=== PATIENT | male | born 1960 ===

== ENCOUNTER 2017-08-12 06:07 | Observation (INO) | payer BC ==
[2017-08-12] MEDS ORDERED: Sodium Chloride 0.9% 1,000 ML IV STA (07:09)
--- NOTE | 2017-08-12 07:09 | ED PDOC ---
Arrival/HPI - General Chief Complaint: GI Problem Time Seen by Provider: 08/12/17 06:44 Historian: Patient - History of Present Illness Narrative History of Present Illness (Text): 08/12/17 07:09 57 year old male, whose past medical history includes cardiac stents, presents to the Emergency department complaining of bloody stool since Tuesday. Patient informs visiting his GI doctor, Dr. Candelaria, for abdominal cramping prior to onset of symptoms. Patient informs worsening symptoms with darker stool. Patient states having a colonoscopy done 8 years ago, on which some diverticulitis was found. Patient denies any vomiting or abdominal discomfort. Patient denies any fever, chills, nausea, diarrhea, chest pain, shortness of breath or any other complaints. PMD: Dr. Gibbons. Time/Duration: < week Symptom Course: Worsening Activities at Onset: Light Context: Home Past Medical History - Provider Review Nursing Documentation Reviewed: Yes - Cardiac Other/Comment: Stents - Psychiatric Hx Substance Use: No Family/Social History - Physician Review Nursing Documentation Reviewed: Yes Family/Social History: No Known Family HX Smoking Status: no Hx Alcohol Use: No Hx Substance Use: No Allergies/Home Meds Allergies/Adverse Reactions: Allergies No Known Allergies Allergy (Verified 08/12/17 06:23) Home Medications: Home Meds Medication Instructions Recorded Confirmed Aspirin [Lo-Dose Aspirin EC] 81 mg PO DAILY 08/12/17 08/12/17 Atorvastatin [Lipitor] 80 mg PO DAILY 08/12/17 08/12/17 Bupropion HCl [Bupropion HCl Xl] 300 mg PO DAILY 08/12/17 08/12/17 Ezetimibe [Zetia] 10 mg PO DAILY 08/12/17 08/12/17 Levothyroxine [Synthroid] 25 mcg PO DAILY 08/12/17 08/12/17 Metoprolol Tartrate [Lopressor] 25 mg PO DAILY 08/12/17 08/12/17 No Known Home Med 08/12/17 08/12/17 Prasugrel [Effient] 10 mg PO DAILY 08/12/17 08/12/17 Ranolazine [Ranexa] 500 mg PO BID 08/12/17 08/12/17 Valsartan [Diovan] 320 mg PO DAILY 08/12/17 08/12/17 Review of Systems - Physician Review All systems were reviewed & negative as marked: Yes - Review of Systems Constitutional: Normal. absent: Fevers Eyes: Normal ENT: Normal Respiratory: Normal. absent: SOB Cardiovascular: Normal. absent: Chest Pain Gastrointestinal: Hematochezia. absent: Abdominal Pain, Diarrhea, Nausea, Vomiting Genitourinary Male: Normal Musculoskeletal: Normal Skin: Normal Neurological: Normal Endocrine: Normal Hemo/Lymphatic: Normal Psychiatric: Normal Physical Exam Vital Signs Reviewed: Yes Vital Signs Temp Pulse Resp BP Pulse Ox 08/12/17 09:00 74 18 124/76 98 08/12/17 06:20 98.2 F 84 18 122/80 89 L Temperature: Afebrile Blood Pressure: Normal Pulse: Regular Respiratory Rate: Normal Appearance: Positive for: Well-Appearing, Non-Toxic, Comfortable Pain Distress: None Mental Status: Positive for: Alert and Oriented X 3 - Systems Exam Head: Present: Atraumatic, Normocephalic Pupils: Present: PERRL Extroacular Muscles: Present: EOMI Conjunctiva: Present: Normal Mouth: Present: Moist Mucous Membranes Neck: Present: Normal Range of Motion Respiratory/Chest: Present: Clear to Auscultation, Good Air Exchange. No: Respiratory Distress, Accessory Muscle Use Cardiovascular: Present: Regular Rate and Rhythm, Normal S1, S2. No: Murmurs Abdomen: Present: Normal Bowel Sounds. No: Tenderness, Distention, Peritoneal Signs Rectal: Present: Gross Blood Back: Present: Normal Inspection Upper Extremity: Present: Normal Inspection. No: Cyanosis, Edema Lower Extremity: Present: Normal Inspection. No: Edema Neurological: Present: GCS=15, CN II-XII Intact, Speech Normal Skin: Present: Warm, Dry, Normal Color. No: Rashes Psychiatric: Present: Alert, Oriented x 3, Normal Insight, Normal Concentration Medical Decision Making ED Course and Treatment: 08/12/17 07:16 Impression: 57 year old male presents to the Emergency department for bloody stool. Plan: -- Blood type/screen -- EKG -- Labs -- IV Fluids -- Reassess and disposition Progress Notes: 08/12/17 08:[address] Candelaria, who specifically wants [facility] admission for the patient upon stable conditions. Dr. Gibbons will be notified. 08/12/17 07:16 EKG: Ordered, reviewed, and independently interpreted the EKG. Rate : 77 BPM Rhythm : NSR Interpretation : No ST-segment elevations or depressions, no T-wave inversions, normal intervals. - Lab Interpretations Lab Results: 08/12/17 07:00 08/12/17 06:53 Lab Results 08/12/17 07:30: Blood Type Confirm A POSITIVE 08/12/17 07:00: WBC 4.3 L, RBC 3.55, Hgb 12.2 L, Hct 37.8 L, MCV 106.5 H, MCH 34.4, MCHC 32.3, RDW 12.8, Plt Count 128, MPV 10.4, Gran % 59.4, Lymph % (Auto) 28.0, [place] % (Auto) 11.7 H, Eos % (Auto) 0.9 L, Baso % (Auto) 0.0, Gran # 2.54, Lymph # (Auto) 1.2, [place] # (Auto) 0.5, Eos # (Auto) 0.0, Baso # (Auto) 0.00 08/12/17 06:53: Blood Type A POSITIVE, Antibody Screen Negative, BBK History Checked No verified bt 08/12/17 06:53: Sodium 139, Potassium 3.9, Chloride 105, Carbon Dioxide 26, Anion Gap 12, BUN 13, Creatinine 1.0, Est GFR ( Amer) > 60, Est GFR (Non- Af Amer) > 60, Random Glucose 122 H, Calcium 9.4, Total Bilirubin 1.1, AST 54, ALT 71 H, Alkaline Phosphatase 71, Total Protein 6.6, Albumin 3.7, Globulin 2.9 , Albumin/Globulin Ratio 1.2, Amylase 45, Lipase 72 08/12/17 06:53: PT 12.0, INR 1.04, APTT 26.6 - Medication Orders Current Medication Orders: Atorvastatin Calcium (Lipitor) 80 mg PO DAILY [facility] Bupropion HCl (Wellbutrin Xl) 300 mg PO DAILY [facility] Lactated Ringer's (Lactated Ringer's) 1,000 mls @ 75 mls/hr IV .[id number] [facility] Stop: 08/12/17 21:01 Levothyroxine Sodium (Synthroid) 25 mcg PO DAILY [facility] Metoprolol Tartrate (Lopressor) 25 mg PO DAILY [facility] Non-Formulary Medication (Ranolazine [Ranexa]) 500 mg PO BID [facility] Pantoprazole Sodium (Protonix Inj) 40 mg IVP DAILY [facility] Valsartan (Diovan) 320 mg PO DAILY [facility] Discontinued Medications Bisacodyl (Dulcolax) 10 mg PO ONCE ONE Stop: 08/12/17 08:49 Last Admin: 08/12/17 09:41 Dose: 10 mg Sodium Chloride (Sodium Chloride 0.9%) 1,000 mls @ 999 mls/hr IV .[id number] STA Stop: 08/12/17 08:09 Last Admin: 08/12/17 07:11 Dose: 999 mls/hr eMAR Start Stop Document 08/12/17 07:11 RAKESH (Rec: 08/12/17 07:11 RAKESH [id number]) Intravenous Solution Start Date 08/12/17 Start Time 07:11 End Date 08/12/17 End time 08:11 Total Infusion Time 60 Magnesium Citrate (Citrate Of Mag) 300 ml PO ONCE ONE Stop: 08/12/17 08:48 Last Admin: 08/12/17 09:33 Dose: 300 ml - Scribe Statement The provider has reviewed the documentation as recorded by the Scribe Jalyn Mheta. All medical record entries made by the Limaibmandy were at my direction and personally dictated by me. I have reviewed the chart and agree that the record accurately reflects my personal performance of the history, physical exam, medical decision making, and the department course for this patient. I have also personally directed, reviewed, and agree with the discharge instructions and disposition. Disposition/Present on Arrival - Present on Arrival Any Indicators Present on Arrival: No History of DVT/PE: No History of Uncontrolled Diabetes: No Urinary Catheter: No History of Decub. Ulcer: No History Surgical Site Infection Following: None - Disposition Have Diagnosis and Disposition been Completed?: Yes Diagnosis: GI bleed Disposition: HOSPITALIZED Disposition Time: 09:00 Condition: STABLE
[2017-08-12 07:21] LABS: ALB/GLOB RATIO 1.2 (1.1-1.8); ALBUMIN 3.7 g/dL (3.0-4.8); ALT/SGPT 71 U/L (7-56); AMYLASE 45 U/L (35-125); AST/SGOT 54 U/L (17-59); BLOOD UREA NITROGEN 13 mg/dL (7-21); CALCIUM 9.4 mg/dL (8.4-10.5); GFR AFRICAN-AMERICAN > 60; GFR NON-AFRICAN AMERICAN > 60; LIPASE 72 U/L (23-300)
[2017-08-12 07:41] LABS: INR 1.04 (0.93-1.08); PARTIAL THROMBOPLASTIN TIME 26.6 Seconds (25.1-36.5)
[2017-08-12 07:45] LABS: EOS % 0.9 % (1.5-5.0); GRAN # 2.54 (1.4-6.5); GRAN % 59.4 % (50.0-68.0); HEMOGLOBIN 12.2 g/dL (14.0-18.0); LYMPH # 1.2 (1.2-3.4); MEAN CELL VOLUME 106.5 fl (80.0-105.0); MEAN CORPUSCULAR HEMOGLOBIN 34.4 pg (25.0-35.0); MEAN CORPUSCULAR HGB CONC 32.3 g/dl (31.0-37.0); MEAN PLATELET VOLUME 10.4 fl (7.0-11.0); MONO # 0.5 (0.1-0.6); MONO % 11.7 % (1.0-6.0); RBC 3.55 10^6/uL (3.5-6.1); RED CELL DISTRIBUTION WIDTH 12.8 % (11.5-14.5); WHITE BLOOD COUNT 4.3 10^3/ul (4.5-11.0)
[2017-08-12] MEDS ORDERED: Magnesium Citrate Oral SOL (300 ml) PO ONE (08:47)
[2017-08-12] MEDS ORDERED: Bisacodyl 5mg EC Tab PO ONE (08:48)
--- NOTE | 2017-08-12 11:12 | CP.PCM.CON ---
<Trista Coulter - Last Filed: 08/12/17 11:32> History of Present Illness - History of Present Illness History of Present Illness: Seen and examined in the emergency room, chart reviewed. Request for GI consult is for rectal bleeding. HPI: This 57-year-old male was seen in outpatient office yesterday for complaints of bright red blood in the stool for 2 days. complains of abdominal cramping and frequent bowel movements. He endorsed intermittent rectal bleeding for the past month and now had 2 days of bloody stool. He has history of homosexuality last sexual encounter via anus was 1 month ago with partner. He had rectal exam done by Dr. Candelaria as per Dr. Candelaria positive for martha blood and palpated rectal ulceration/mass. Patient continue to have bleeding. He has PMH of CAD, cardiac stent, HTN, GERD on Effient and aspirin. As per Dr. Candelaria, he spoke to cardiologsit and Effient was stopped, last cardiac cath was 3 years ago. No SOB, CP, N/V or fever or chills. PMH:Coronary artery disease,Hypercholesterolemia,Hypertension,3 cardiac stents, Gastroesophageal reflux, diverticulosis,Type 2 diabetes mellitus,Hypothyroidism. PSH: Last Colonoscopy was done on 2009. Family HX: denies fx h/o GI cancer MEDS: MAR reviewed, significant for Effient Social History: Non smoker.Patient drinks alcoholic beverages. 1 glass of wine a day, denies recreational drug use Allergy: shrimp ROS:systems reviewed w/ positive findings, see HPI Past Patient History - Past Social History Smoking Status: no - CARDIAC Other/Comment: Stents - PSYCHIATRIC Hx Substance Use: No Meds Allergies/Adverse Reactions: Allergies Allergy/AdvReac Type Severity Reaction Status Date / Time No Known Allergies Allergy Verified 08/12/17 06:23 Physical Exam - Constitutional Appears: No Acute Distress - Head Exam Head Exam: NORMOCEPHALIC - Eye Exam Eye Exam: Normal appearance. absent: Scleral icterus - ENT Exam ENT Exam: Mucous Membranes Moist - Neck Exam Neck exam: Positive for: Normal Inspection - Respiratory Exam Respiratory Exam: NORMAL BREATHING PATTERN. absent: Respiratory Distress - Cardiovascular Exam Cardiovascular Exam: +S1, +S2 - GI/Abdominal Exam GI & Abdominal Exam: Normal Bowel Sounds, Soft. absent: Guarding, Organomegaly , Rebound, Tenderness - Rectal Exam Additional comments: done in ER, (+) blood and done in out pt office. see HPI - Extremities Exam Extremities exam: Positive for: pedal pulses present. Negative for: calf tenderness, pedal edema - Neurological Exam Neurological exam: Alert, CN II-XII Intact, Oriented x3 - Skin Skin Exam: Dry, Warm Results - Vital Signs Recent Vital Signs: Last Vital Signs Temp 98.2 F 08/12/17 06:20 Pulse 84 08/12/17 06:20 Resp 18 08/12/17 06:20 BP 122/80 08/12/17 06:20 Pulse Ox 89 L 08/12/17 06:20 - Labs Result Diagrams: 08/12/17 07:00 08/12/17 06:53 Assessment & Plan - Assessment and Plan (Free Text) Assessment: ASSESSMENT: GI bleed, rectal bleeding, differential to consider,rectal mass, angiodysplasia H/O Diverticulosis CAD Cardiac stents DM PLAN: NPO except meds IVF for hydration plan for flex/colon, will give magnesium citrate and 2 tabs of Dulcolax monitor H/H GI prophylaxsis discuss plan with patient, ER physician, and nursing staff at bedside. Thank you for this consult and for allowing us to participate in your patient care. Seen and discussed w/ Dr. Candelaria. <Macario Candelaria V - Last Filed: 08/12/17 20:30> Meds - Medications Medications: Current Medications Aspirin (Ecotrin) 81 mg PO DAILY [facility] Atorvastatin Calcium (Lipitor) 80 mg PO DAILY [facility] Last Admin: 08/12/17 17:49 Dose: 80 mg Bupropion HCl (Wellbutrin Xl) 300 mg PO DAILY [facility] Last Admin: 08/12/17 17:46 Dose: Not Given Ezetimibe (Zetia) 10 mg PO DAILY [facility] Lactated Ringer's (Lactated Ringer's) 1,000 mls @ 75 mls/hr IV .[id number] [facility] Stop: 08/12/17 21:01 Levothyroxine Sodium (Synthroid) 25 mcg PO DAILY [facility] Last Admin: 08/12/17 17:47 Dose: Not Given Metoprolol Tartrate (Lopressor) 25 mg PO DAILY [facility] Last Admin: 08/12/17 17:50 Dose: 25 mg Pantoprazole Sodium (Protonix Inj) 40 mg IVP DAILY [facility] Last Admin: 08/12/17 17:50 Dose: 40 mg Valsartan (Diovan) 320 mg PO DAILY [facility] Last Admin: 08/12/17 17:50 Dose: 320 mg Results - Vital Signs Recent Vital Signs: Last Vital Signs Temp 98.0 F 08/12/17 14:30 Pulse 76 08/12/17 15:15 Resp 16 08/12/17 15:15 BP 120/78 08/12/17 17:50 Pulse Ox 97 08/12/17 15:15 - Labs Result Diagrams: 08/12/17 07:00 08/12/17 06:53 Attending/Attestation - Attestation I have personally seen and examined this patient.: Yes I have fully participated in the care of the patient.: Yes I have reviewed all pertinent clinical information: Yes Notes (Text): This is an addendum to GI consult report dictated by Trista Coulter APN.The patient was seen and examined earlier. Medical records, lab studies, imagings were reviewed. Last 24 hours events reviewed. Agreed with the above treatment plan as outlined in Trista Coulter APN's notes the with the addition of the following patient has a bright red per rectum rectal examination done earlier revealed a ulcerated area the lower rectum Follow up of the hemoglobin and hematocrit scheduled for colonoscopy history of status post PCI sp PCI 3yr ago. patient was on efficient which was discontinued yesterday 08/12/17 20:28
[2017-08-12 12:13] VITALS: BMI 29.7
[2017-08-12] MEDS ORDERED: Lactated Ringer's 1,000 ML IV SCH (13:00)
[2017-08-12] MEDS ORDERED: Propofol 10 mg/ml Inj (20 ML) ONE (13:07)
[2017-08-12] MEDS ORDERED: Etomidate 20 mg/10ml Inj IV ONE (14:06)
[2017-08-12] MEDS ORDERED: Iohexol 240 (50 ml) ONE (16:24)
[2017-08-12] MEDS: buPROPion 300 mg/24 Hours XL Tab PO SCH (17:46)
[2017-08-12] MEDS: Levothyroxine 25 MCG TAB PO SCH (17:47)
[2017-08-12] MEDS ORDERED: Iohexol 350 MG/100 ML VIAL ONE (18:32)
--- NOTE | 2017-08-12 21:06 | CT ---
EXAM: CT Abdomen and Pelvis With Intravenous Contrast CLINICAL HISTORY: 57 years old, male; Signs and symptoms; Other: Cramping; Additional info: Abd cramping TECHNIQUE: Axial computed tomography images of the abdomen and pelvis with intravenous contrast. All CT scans at this facility use one or more dose reduction techniques, viz.: automated exposure control; ma/kV adjustment per patient size (including targeted exams where dose is matched to indication; i.e. head); or iterative reconstruction technique. Coronal and sagittal reformatted images were created and reviewed. CONTRAST: 100 mL of omni administered intravenously. COMPARISON: No relevant prior studies available. FINDINGS: Lower thorax: No acute findings. ABDOMEN: Liver: Fatty infiltration. Gallbladder and bile ducts: No calcified stones. No ductal dilation. Pancreas: No ductal dilation. No mass. Spleen: No splenomegaly. Adrenals: No mass. Kidneys and ureters: No mass. No hydronephrosis. Stomach and bowel: Several diverticula within sigmoid colon. No associated inflammatory stranding. Segmental areas of probable underdistention of sigmoid colon. No definite mural thickening. No obstruction. Appendix: No definite findings to suggest acute appendicitis. PELVIS: Bladder: Unremarkable. Reproductive: Mildly enlarged prostate. ABDOMEN and PELVIS: Intraperitoneal space: No significant fluid collection. No free air. Bones/joints: Early degenerative changes of spine. No acute fracture. Soft tissues: Unremarkable. Vasculature: Mild atherosclerotic disease. No aneurysm. Lymph nodes: No pathologically enlarged lymph nodes. IMPRESSION: 1. Diverticulosis without definite CT evidence of diverticulitis. 2. Incidental/non-acute findings are described above.
--- NOTE | 2017-08-12 23:42 | CARD ---
APPROVED REPORT EKG Measurement Heart [id number] <Conclusion> Normal sinus rhythm Normal ECG
--- NOTE | 2017-08-13 06:44 | HP ---
HISTORY OF PRESENT ILLNESS: Patient is 57 years old, referred by Dr. Candelaria. When he saw him in the office, he was having rectal bleeding for a day or 2. Does complain of some abdominal cramping. Patient carries a diagnosis of diverticulosis. He thought this is because of that and he admits having such rectal bleeding for two days. He states that he was having internal bleeding for almost a month, but got more within the last two days. He has a history of hypertension, status post cardiac catheterization and angioplasty in 2014 and since then, he is on Effient and statins. PAST MEDICAL HISTORY: He also has significant past medical history for: 1. Angioplasty. 2. Coronary artery disease. 3. Hypertension. 4. Hyperlipidemia. 5. Tcl-yqvoyjo-ooretwffp diabetes. 6. History of diverticulosis. 7. Gastroesophageal reflux disease. 8. Hypothyroidism. 9. Last colonoscopy was done in 2009. ALLERGIES: NOT ALLERGIC TO ANY MEDICATIONS. MEDICATIONS AT HOME: He is on metoprolol 25 daily, Ranexa 500 twice a day, aspirin 81 daily, bupropion 300 daily, Effient 10 mg daily, Zetia 10 mg daily, levothyroxine 25 mcg daily, atorvastatin 80 mg, Diovan 320 daily. 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 REVIEW OF SYSTEMS: Significant for rectal bleeding only. PHYSICAL EXAMINATION: GENERAL: He is awake, alert, oriented, communicative. VITAL SIGNS: He is afebrile, pulse 76, respirations 16, blood pressure 120/78. LUNGS: Bilateral good airflow. No rhonchi or crackles. HEART: S1 and S2 audible. ABDOMEN: Soft, nontender. No rebound. No guarding. NEUROLOGICAL: He is awake, alert, oriented, able to communicate. LABORATORY DATA: WBC 4.3, hemoglobin 12, hematocrit 37.8, platelets of 128,000. PT 12.0, INR 1.04. Chemistry: Sodium 139, potassium 3.9, chloride 105, CO2 of 26, BUN 13, creatinine 1.0, blood sugar of 122. LFTs are within normal limits. , status post colonoscopy shows internal hemorrhoids and terminal ileum appears normal. There is single solitary 1-mm ulcer found in the rectum with no bleeding. ASSESSMENT: 1. Rectal bleeding secondary to rectal ulcer. 2. History of diverticulosis. 3. Hypertension. 4. Coronary artery disease. 5. Hyperlipidemia. PLAN: His Effient is on hold. We will start him on aspirin, start him on Zetia. He is on valsartan, metoprolol and we will follow up his CBC in the morning and if he remains stable, he will be discharged home in the morning. Javi Gibbons MD
[2017-08-13 07:03] LABS: EOS % 0.7 % (1.5-5.0); GRAN # 1.91 (1.4-6.5); GRAN % 46.8 % (50.0-68.0); HEMOGLOBIN 12.6 g/dL (14.0-18.0); LYMPH # 1.7 (1.2-3.4); LYMPH % 41.3 % (22.0-35.0); MEAN CELL VOLUME 107.2 fl (80.0-105.0); MEAN CORPUSCULAR HEMOGLOBIN 34.8 pg (25.0-35.0); MEAN CORPUSCULAR HGB CONC 32.5 g/dl (31.0-37.0); MEAN PLATELET VOLUME 10.5 fl (7.0-11.0); MONO # 0.5 (0.1-0.6); MONO % 11.2 % (1.0-6.0); RBC 3.62 10^6/uL (3.5-6.1); RED CELL DISTRIBUTION WIDTH 12.9 % (11.5-14.5); WHITE BLOOD COUNT 4.1 10^3/ul (4.5-11.0)
[2017-08-13 08:00] VITALS: BP 112/80; PULSE 95; RESP 20; TEMP 98.2; O2SAT 94
--- NOTE | 2017-08-13 08:17 | CON ---
DATE: 08/13/2017 LOCATION: The patient is seen in room 561, bed 2. CHIEF COMPLAINT: The patient came in with GI pain. HISTORY OF PRESENT ILLNESS: This is a 57-year-old male who was [place] in [place] and who has a history of coronary artery disease and diverticulitis, who was admitted with abdominal cramps and the patient had a colonoscopy, was found to have proctitis and rectal ulcer. Infectious Disease consultation requested. REVIEW OF SYSTEMS: Reveals the patient has no fevers. No chills. No chest pain. Did have nausea earlier, which is resolved and no abdominal pain at this time. No shortness of breath or cough. PAST MEDICAL HISTORY: Significant for coronary artery disease and diverticulitis. PAST SURGICAL HISTORY: Significant for cardiac stents and colonoscopy. SOCIAL HISTORY: The patient was born in [place]. 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 He is . He states he has a ; however, they do have extramarital events. He states he sees Dr. Edwin Carr in [place] that is his primary doctor who is an infectious disease doctor. In last month in July, he was checked for syphilis, gonorrhea, Chlamydia and according to the patient he had had complete workup and he has not had any sexual encounters since June and his last travel was to [facility] a year and a half ago. He is not a smoker at this point. ALLERGIES: THE PATIENT HAS NO KNOWN ALLERGIES. PHYSICAL EXAMINATION: GENERAL: He is in bed, in no acute distress, answering questions appropriately. VITAL SIGNS: Temperature is 99.3, heart rate of 78 and the blood pressure is 115/72, respiratory rate of 18. HEENT: Examination of HEENT is unremarkable. NECK: Supple. LUNGS: Have decreased breath sounds. HEART: Normal S1 and S2. ABDOMEN: Soft, nontender. No organomegaly. No rebound or guarding. No masses. LABORATORY DATA: Laboratory examination reveals the patient's white count of 4.3, hemoglobin of 12, platelets of 128. The patient does have an MCV of 106.5 and coagulation is noted. Chemistries reveals random glucose is 122, ALT is 71 and hepatitis profile has been ordered. Chlamydia and GC has been ordered. The patient states he was tested for HIV and syphilis as outpatient. It was negative. 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 He has a coronary artery disease, diverticulitis. He has receptive anal sex. Proctitis. He has had a workup for gonorrhea and Chlamydia in July and syphilis and human immunodeficiency virus, which was negative and according to the patient, he has not had any sexual contact. He has not had any history of herpes. We will repeat the human immunodeficiency virus and RPR and FTA and start the patient empirically on acyclovir 400 mg t.i.d. for 7 days. The patient had a colonoscopy with biopsy. The patient also had a CAT scan, which is noncontributory. He is a 57-year-old man with coronary artery disease, diverticulitis with proctitis and rectal ulcer, who was treated with acyclovir and repeat the workup including gonococcal and gonorrhea RNA, TMA testing and RPR and FTA and human immunodeficiency virus pending the pathology from the colonoscopies, biopsy. Obviously, noninfectious causes, inflammatory bowel disease and ulcerative colitis and Crohn's is in the differential diagnosis in addition to unusual causes and Salmonella and syphilis will be looked for. We will check on the pathology report and biopsy report. Recommend empiric acyclovir 400 mg p.o. t.i.d. 7-10 days. Pending pathology report, he maybe followed up as outpatient and the patient is to return to see Dr. Edwin Carr in [place]. Rodney Montoya MD
[2017-08-13] MEDS: Levothyroxine 25 MCG TAB PO SCH (10:28)
[2017-08-13] MEDS: buPROPion 300 mg/24 Hours XL Tab PO SCH (10:28)
--- NOTE | 2017-08-14 03:41 | DS ---
HISTORY OF PRESENT ILLNESS: The patient is 57 years old, was referred by Dr. Candelaria after he was seen after rectal bleeding. On rectal exam, he saw ulcer. For further evaluation, he was sent to emergency room. During his stay in the hospital, the patient did not have any more rectal bleeding. He was prepped, underwent colonoscopy yesterday, was found to have also not bleeding actively at that point. 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 The patient was evaluated by Dr. Montoya. Workup was ordered and recommended to have acyclovir 400 mg three times a day. The patient was given regular food that he tolerated and being discharged home today. PHYSICAL EXAMINATION: GENERAL: He is awake, alert, oriented, communicative. VITAL SIGNS: He is afebrile, pulse 95, respirations 20, blood pressure 112/80. LUNGS: Bilateral fair airflow. No rhonchi or crackles. HEART: S1 and S2 audible. ABDOMEN: Soft, nontender. No rebound. No guarding. NEUROLOGICAL: The patient is awake, alert, oriented and communicative. LABORATORY EXAM: WBC is 4.1, hemoglobin 12.6, hematocrit 38, platelet 120. Chemistry: Sodium 139, potassium 3.9, chloride 105, CO2 of 23, BUN 13, creatinine 1.0, platelet 122. IMPRESSION: 1. Status post rectal bleeding. 2. Rectal ulcer. 3. Coronary artery disease, status post angioplasty 3 years ago. 4. Hyperlipidemia. PLAN: The patient is being discharged home today. He will resume all his medications as prior to admission. He is given prescription of acyclovir 400 three times a day for 10 days and he will follow up with Dr. Montoya and he is advised to follow up with Dr. Candelaria also for further followup. Javi Gbibons MD
[2017-08-14 08:35] LABS: HEPATITIS B SURFACE AG Negative (NEGATIVE)
[2017-08-14 08:52] LABS: HEPATITIS C ANTIBODY NEGATIVE (NEGATIVE)
[2017-08-14 09:42] LABS: HEPATITIS B CORE AB NEGATIVE (NEGATIVE)
[2017-08-14 11:13] LABS: HEPATITIS A IGM NEGATIVE (NEGATIVE)
== END 2017-08-13 14:21 | disposition home or self-care (01) ==
LOC: ED 06:07 → ERH 08:25 → INTOOBSV 08:25 → 5RNO 11:03
PROVIDERS: ADMIT Internal Medicine; ATTEND Internal Medicine
DX: K62.6 Ulcer of anus and rectum (principal); K64.8 Other hemorrhoids; K62.89 Other specified diseases of anus and rectum; I10 Essential (primary) hypertension; E78.5 Hyperlipidemia, unspecified; E78.00 Pure hypercholesterolemia, unspecified; E11.9 Type 2 diabetes mellitus without complications; E03.9 Hypothyroidism, unspecified; I25.10 Atherosclerotic heart disease of native coronary artery without angina pectoris; K21.9 Gastro-esophageal reflux disease without esophagitis; K57.92 Diverticulitis of intestine, part unspecified, without perforation or abscess without bleeding; Z79.82 Long term (current) use of aspirin; Z79.899 Other long term (current) drug therapy; Z95.5 Presence of coronary angioplasty implant and graft
CPT/HCPCS: 36415; 45378; 74177; 80053; 80074; 82150; 83690; 85025; 85610; 85730; 86592; 86780; 86850; 86900; 87389; 87491; 87591; 93005; 96360; 99284; C9113; G0378; J2001; J2704; J7040; J8499; Q9966; Q9967